=== PATIENT | female | born 1975 | race Caucasian/White ===

== ENCOUNTER → 2017-02-23 | Outpatient (CLI) | payer BC ==
[~2017-02-23] MED LIST: CALCIUM CARBONATE PO; LIDOCAINE 2% TOP; MOTRIN 600600 MG/TAB PO; PEPCID 20MG TAB20 MG; PERCOCET 325 MG1 TA2 PO; PRENATAL VITA1 UDTAB PO; TYLENOL EXTRA500 M1 PO; ZOFRAN 4MG T4 MG/TAB
== END ==
LOC: MC.RAD 13:40
DX: Z12.31 Encounter for screening mammogram for malignant neoplasm of breast (principal)

== ENCOUNTER 2018-03-02 18:48 | Emergency (ER) | payer BC ==
[~2018-03-02] VITALS: Ht 170.2 cm; Wt 66.8 kg
[2018-03-02 18:55] VITALS: BP 125/84; TEMP 98
[2018-03-02 19:30] LABS: BASO % 0.8 % (0.0-2.0); EOS # 0.1 (0.0-0.7); EOS % 2.1 % (0-4.0); GRAN # 1.8 (1.4-6.5); HEMOGLOBIN 11.5 g/dl (12.5-16.0); LYMPH # 1.6 (1.2-3.4); LYMPH % 41.8 % (20.0-51.0); MEAN CELL VOLUME 92 fl (80.0-100.0); MEAN CORPUSCULAR HEMOGLOBIN 29 pg (27.0-31.0); MEAN CORPUSCULAR HGB CONC 32 g/dl (33.0-37.0); MEAN PLATELET VOLUME 9.7 fl (7.4-10.4); MONO # 0.4 (0.1-0.6); MONO % 10.3 % (1.7-9.3); PLATELET COUNT 205 K/mm3 (130-400); RED BLOOD COUNT 3.92 M/mm3 (4.10-5.30); REDCELL DISTRIBUTION WIDTH-CV 12.6 % (11.5-14.5)
[2018-03-02 19:34] LABS: HEMATOCRIT 35.9 % (37.0-47.0)
[2018-03-02 19:45] LABS: ALANINE AMINOTRANSFERASE 27 U/L (9-52); ALBUMIN 4.2 gm/dL (3.5-5.0); ALKALINE PHOSPHATASE 51 U/L (50-136); ANION GAP 7 mmol/L (7-16); AST,SGOT 25 U/L (15-37); BILIRUBIN,TOTAL 0.3 mg/dL (0.0-1.0); BLOOD UREA NITROGEN 13 mg/dL (7-17); CALCIUM 8.8 mg/dL (8.4-10.2); CARBON DIOXIDE 22 mmol/L (22-30); CHLORIDE 109 mmol/L (98-107); GLUCOSE 88 mg/dL (74-106); LIPASE 90 U/L (23-300); POTASSIUM 4.1 mmol/L (3.4-5.0); SODIUM 139 mmol/L (137-145); TOTAL PROTEIN 7.2 gm/dL (6.4-8.2)
[2018-03-02 19:49] LABS: COLLECTION METHOD CLEAN CATCH
[2018-03-02 19:52] LABS: C-REACTIVE PROTEIN < 0.5 mg/dL (0.0-0.9)
[2018-03-02 19:54] LABS: MUCOUS Present /lpf; PH 5 (5-8); SQUAMOUS EPITHELIAL None Seen /hpf; URINE APPEARANCE Clear; URINE BACTERIA None Seen /hpf; URINE BILIRUBIN Negative (NEGATIVE); URINE BLOOD Negative (NEGATIVE); URINE COLOR Yellow; URINE GLUCOSE Negative (NEGATIVE); URINE KETONE Trace (NEGATIVE); URINE LEUKOCYTE ESTERASE Negative (NEGATIVE); URINE NITRATE Negative (NEGATIVE); URINE PROTEIN(semi-quant) Negative (NEGATIVE); URINE UROBILINOGEN Negative (NEGATIVE)
[2018-03-02] MEDS ORDERED: NORCO 325 MG-51 TAB PO (21:02)
[2018-03-02] MEDS ORDERED: ZOFRAN ODT4 MG PO (21:02)
[2018-03-02 21:10] VITALS: PULSE 65
== END 2018-03-02 21:10 | disposition home or self-care (01) ==
LOC: COL.ER 18:48
PROVIDERS: Emergency Medicine
DX: R10.11 Right upper quadrant pain (principal); R10.12 Left upper quadrant pain; G43.709 Chronic migraine without aura, not intractable, without status migrainosus
CPT/HCPCS: J1170; J2405; J7030

== ENCOUNTER → 2018-05-18 | Outpatient (CLI) | payer BC ==
[~2018-05-18] MED LIST changes: +NORCO 325 MG-51 TAB PO; +ZOFRAN ODT4 MG PO
== END ==
LOC: MC.RAD 11:29
DX: Z12.31 Encounter for screening mammogram for malignant neoplasm of breast (principal)

== ENCOUNTER 2019-03-23 23:57 | Emergency (ER) | payer BC ==
[~2019-03-23] VITALS: Ht 170.2 cm; Wt 68.2 kg
[2019-03-24 00:11] VITALS: BP 127/81; TEMP 97.2
[2019-03-24] MEDS ORDERED: MULTI VITAMINS1 TAB PO (01:29)
[2019-03-24] MEDS ORDERED: CLARITIN 1010 MG/TAB PO (01:29)
[2019-03-24] MEDS ORDERED: TOPAMAX50 MG PO (01:29)
[2019-03-24] MEDS ORDERED: SINGULAIR 110 MG/TAB PO (01:30)
[2019-03-24] MEDS ORDERED: AMOXICILLIN 8751 TAB PO ×2 (02:16)
[2019-03-24 03:35] VITALS: PULSE 85
== END 2019-03-24 03:35 | disposition home or self-care (01) ==
LOC: COL.ER 23:57
DX: S01.511A Laceration without foreign body of lip, initial encounter (principal); S01.21XA Laceration without foreign body of nose, initial encounter; G43.909 Migraine, unspecified, not intractable, without status migrainosus; W54.0XXA Bitten by dog, initial encounter; Y92.009 Unspecified place in unspecified non-institutional (private) residence as the place of occurrence of the external cause